=== PATIENT | female | born 1980 | race Two or more races ===

== ENCOUNTER 2017-10-27 15:34 | Emergency (ER) | payer OTHER ==
[~2017-10-27] VITALS: Ht 162.6 cm; Wt 77.1 kg
[~2017-10-27 15:34] MED LIST: ATABEX PRENATAL1 TAB; TRAMADOL HCL-AP1 TAB; ZANTAC150 M1
[2017-10-28] MEDS ORDERED: AMOX1TAB5 PO (00:56)
[2017-10-28] MEDS ORDERED: ORASEP SPRAY30 ML MM (00:56)
[2017-10-28] MEDS ORDERED: SUDAFED 12 HOU120 MG PO (01:00)
== END 2017-10-28 03:45 | disposition home or self-care (01) ==
LOC: ER 15:34
DX: B34.9 Viral infection, unspecified (principal); J03.90 Acute tonsillitis, unspecified